=== PATIENT | female | born 1975 | race African-American/Black ===

== ENCOUNTER 2017-07-19 19:57 | Emergency (ER) | payer SELFPAY ==
[~2017-07-19] VITALS: Ht 157.5 cm; Wt 62.1 kg
[~2017-07-19 19:57] MED LIST: NKM
[2017-07-19 20:17] VITALS: BP 180/100
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
== END 2017-07-19 20:59 | disposition home or self-care (01) ==
LOC: EDBD 19:57 → EMR 20:39
DX: S90.31XA Contusion of right foot, initial encounter (principal); V43.52XA Car driver injured in collision with other type car in traffic accident, initial encounter; Y92.410 Unspecified street and highway as the place of occurrence of the external cause
CPT/HCPCS: 99283